=== PATIENT | male | born 1980 | race Caucasian/White ===

== ENCOUNTER 2020-03-12 19:17 | Emergency (ER) | payer OTHER ==
[~2020-03-12] VITALS: Ht 182.9 cm; Wt 105.0 kg
[2020-03-12 19:50] VITALS: BP 132/74
[2020-03-12 21:08] LABS: COVID AG,FIA SOURCE NASOPHARYNGEAL
== END 2020-03-12 22:16 | disposition home or self-care (01) ==
LOC: EMS 19:26
DX: Z20.828 Contact with and (suspected) exposure to other viral communicable diseases (principal); F17.210 Nicotine dependence, cigarettes, uncomplicated
CPT/HCPCS: 87426; 99283; U0003